=== PATIENT | male | born 1965 | race Caucasian/White ===

== ENCOUNTER 2018-01-06 11:49 | Inpatient (IN) ==
--- NOTE | 2018-01-05 21:56 | Discharge Summary ---
<NeymarRena E - Last Filed: 01/05/18 21:54> Date of Encounter: 01/05/18 - Discharge Diagnosis (1) Status post total replacement of left shoulder Priority: Primary Status: Acute (2) Arthritis of left shoulder region Priority: Primary Status: Chronic - Hospital Course Hospital course: Mr. Angel is a 52 year old male - Time Spent with Patient Total time spent providing and/or coordinating discharge services: - Discharge Medications Home Medications: OxyCODONE Immed Rel [Roxicodone 5 MG] 5 mg PO Q6HR PRN 7 Days #28 tablet [Rx] Allergies/Adverse Reactions: 3 Allergy/AdvReac Type Severity Reaction Status Date / Time No Known Allergies Allergy Verified 01/06/18 12:24 Primary care physician: Ralph Carlton MD - Patient Status Disposition: Home, Self-Care Condition: Good - Discharge Instructions Follow Up With: Gildardo Wang MD [Partnered Physician] - 02/05/18 4:45 pm Yenifer Medina PAC [Physician Print Producer] - 01/16/18 2:00 pm Additional Instructions: Discharge Instructions: Total Shoulder Please call [facility] ([phone]), your Primary Care Physician, or report to the Emergency Room if you have any of the following symptoms: Nausea, vomiting, fever greater that 101.5, swelling, chest pain, shortness of breath, increased pain/redness/drainage/odor for your incision site, numbness/ tingling, or any other concerning symptoms. ACTIVITY: Always keep your arm in the sling. Do not raise your arm away from your body. Do not use your arm to help with getting in or out of bed. No weight bearing permitted. Only perform those exercises given to you by your therapist. MEDICATIONS: Upon discharge resume your home medications. Take all the medications as prescribed. Take a stool softener if taking narcotic pain medications. Stool softeners are only effective if you drink enough fluids. Drink 6-8 glass of water or fluids a day, unless this is not allowed for another health problem. Despite using stool softeners, if you haven't had a bowel movement in 3 days, please switch to a gentle laxative. Gentle laxatives are sold over the counter. You should have a bowel movement within 24 hours, if not call the office. You will be discharged from the hospital with a prescription for pain medication. You are encouraged to decrease the use of narcotic pain medication as tolerated. Should you require a refill, please call the office. [facility] prescribes narcotic pain medication for only 4-6 weeks after surgery. If you require pain medication beyond this time period, you may be referred to your Primary Care Physician or to the Pain Clinic for further evaluation. Plan ahead for refills on pain medication as many narcotics either need to be picked up at the office or mailed. It is best to call 48-72 hours in advance of needing a prescription refill so you don't run out of medication. To help control the post-operative pain, you may take NSAIDs (Aleve,Advil, Motrin, Ibuprofen, Naprosyn) or Tylenol as prescribed on the bottle in addition to the pain medication. WOUND CARE: Leave the dressing on for 7-10 days. You may change the dressing if it becomes saturated greater than 50%. Do not get the dressing wet at anytime. Wash your hands with antibacterial soap, rinse and dry prior to any wound care. If you have pearl the visiting nurse or rehab facility can remove the stapes 10-14 days after surgery and place steri-strips across the wound. Leave the steri-strips in place until they fall off on their own. You may let water from the shower run on top of the steri-strips. If you do not have a visiting nurse or rehab facility, you will need to return to the office at 10-14 days for the pearl to be removed. If you have itching or redness around the dressing call the office. FOLLOW-UP: Please follow up with your surgeon in the orthopedic clinic, as scheduled <Gildardo Wang - Last Filed: 01/06/18 18:34> Orders not resulted at time of discharge: Pending orders 01/06/18 00:00 XR shoulder complete LT [XR] Routine 01/06/18 01:00 Hemoglobin and Hematocrit [HEME] Routine 01/06/18 13:00 US anesthesia pain block [US] Stat Date of Encounter: 01/06/18 Time of Encounter: 18:34 - Discharge Diagnosis (1) Obesity (BMI 30.0-34.9) Priority: Primary Status: Chronic (2) Status post total replacement of left shoulder Priority: Primary Status: Acute (3) Arthritis of left shoulder region Priority: Primary Status: Chronic (4) Tobacco use Priority: Secondary Status: Chronic - Hospital Course Hospital course: Mr. Angel is a 52 year old male Status post left total shoulder replacement discharged home same day - Time Spent with Patient Total time spent providing and/or coordinating discharge services: Primary care physician: Ralph Carlton MD - Patient Status Functional capacity at discharge: independent ambulation Overall status at discharge: patient is progressing back to baseline
[2018-01-06] MEDS ORDERED: CeFAZolin Syr 2,000MG/20 ML 2,000 MG/20 ML SYRINGE IVPB ONE (12:05)
[2018-01-06] MEDS ORDERED: Ringers Solution, Lactated 1,000 ML IVC SCH ×2 (12:15→17:16)
[2018-01-06] MEDS ORDERED: Acetaminophen IV 1,000 MG/100 ML INFUS..BTL IVPB ONE (12:34)
--- NOTE | 2018-01-06 12:37 | Anesthesia Evaluation PreOp ---
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: Denies Any Significant HX Other Medical History: Denies Any Significant HX Anesthesia History: Past Anesthesia (spinal fusion, cholecystectomy), Problems ( PONV) Alcohol Use: none Drug use: none Medications and Allergies OxyCODONE Immed Rel [Roxicodone 5 MG] 5 mg PO Q6HR PRN 7 Days #28 tablet [Rx] 3 Allergy/AdvReac Type Severity Reaction Status Date / Time No Known Allergies Allergy Verified 01/06/18 12:24 - Meds/Allergy Pre-op Review Medications Reviewed: Yes Allergies Reviewed: Yes Beta Blockers on Current Med List: No Anesthesia Results - Labs Laboratory Tests 12/30/17 12/30/17 12/30/17 08:50 08:50 08:50 WBC 9.5 Hgb 16.1 Hct 47.0 Plt Count 293 PT 12.0 INR 1.1 Sodium 136 Potassium 3.9 Chloride 105 Carbon Dioxide 25 BUN 18 Creatinine 1.00 Glucose 111 H Anesthesia Exam O2 Sat Height 1.88 m Height 1.88 m Height 1.88 m Weight 106.141 kg Weight 106.141 kg Weight 106.141 kg O2 Sat by Pulse Oximetry 96 Vital Signs Temp Pulse Resp BP Pulse Ox 97.8 F 77 18 126/84 96 01/06/18 12:14 01/06/18 12:14 01/06/18 12:14 01/06/18 12:14 01/06/18 12:14 NPO (# of Hours): >8 - HEENT Pupil (Motor): Pupils equal, EOMI Mallampati: II Teeth: Normal Oral Opening: Greater than 3 - CONTROL INTEGRATION ENGINEER LOC: Oriented CONTROL INTEGRATION ENGINEER Motor: Normal RUE, Normal LUE, Normal RLE, Normal LLE, Normal Face CONTROL INTEGRATION ENGINEER Sensory: Normal: RUE, LUE, RLE, LLE, Face - Cardiac Rhythm: Regular - Pulmonary Breath Sounds: bilateral Clear Respiratory Effort: Symmetrical Anesthesia Assess/Plan ASA Score: 2 Modified Frannie Scale for Level of Consciousness: Cooperative, oriented, and tranquil Anesthetic Plan: General, Regional (L brachial plexus) Monitoring Plan: Standard Monitors Recovery Plan: PACU
[2018-01-06] MEDS ORDERED: Scopolamine Patch 1.5 MG PATCH.TD72 TD ONE (12:56)
--- NOTE | 2018-01-06 13:13 | History & Physical Report ---
Date of Encounter: 01/06/18 Time of Encounter: 13:12 24 Hour HP Update - Instructions Instructions: If the History and Physical is less than 30 days old and was completed prior to A.M. admission and or procedure and has NOT been updated on calendar day of procedure please complete this update prior to performing procedure. - Update Patient reports changes in Medical Condition: No Changes in examination, assessment, or condition: No Changes in Medication: No Preop tests/diagnostics Reviewed: Yes Surgery Remains Indicated: Yes Consent for Planned Operative Procedure(s) Verified: Yes - Pre-Operative Checklist Preoperative Checklist Indicated: No Prophylactic Antibiotic Ordered: Yes Is VTE Prophylaxis Indicated?: Yes
[2018-01-06] MEDS ORDERED: ROPIVACAINE HCL/PF 0.5% 30 ML VIAL ONE (14:08)
[2018-01-06] MEDS ORDERED: Bupivacaine/Clonidine Syringe 1 EACH SYRINGE ONE (14:28)
--- NOTE | 2018-01-06 14:39 | Anesthesia Procedures ---
Date of Encounter: 01/06/18 Time of Encounter: 14:36 Procedures: Anesthesia - Nerve Block Procedure Date: 01/06/18 Time: 14:37 Allergies/Adv Reactions: NKDA Pre-op Diagnosis: left shoulder arthritis Surgical Procedure: left total shoulder Checklist: Correct Patient Identifier, Correct procedure, History checked Correct side: Left Blood Thinner: No Monitor Applied: BP, Pulse Oximetry Supplemental Oxygen via Nasal Cannula (L/min): 2 Sedation: Versed (mg): 2 Sedation: Fentanyl (mcg): 100 Indication: Post Op Analgesia (per dr. pires) Pre-op Neuro Deficits: No Block Type: Supraclavicular, Other (SCP) Catheter placed: No Sterile Technique: Yes Ultrasound used: Yes Anatomy identified: Yes Visual spread of Local: Yes Neuro Stimulation: No Blood on Needle Aspiration: No Smooth Injection of Local: Yes Pain with Injection of Local: No Prep: Chlorhexadine Needle: 22 x 50 mm Stimuplex Local: 0.25% Bupivicaine w/Clonidine 20 mcg/cc (7ml for SCP), Ropivacaine (0.5% 30ml with decadron 4mg for supraclav) Volume (cc): ropivacaine 30ml, bupiv 7 Number of Attempts: 1 Complications: None/effective block Vitals: Vital Signs/O2 Sat, Most Current Temp Pulse Resp BP Pulse Ox 97.8 F 77 18 126/84 96 01/06/18 12:14 01/06/18 12:14 01/06/18 12:14 01/06/18 12:14 01/06/18 12:14
[2018-01-06] MEDS ORDERED: Ondansetron 4 MG/2 ML VIAL IVP PRN ×2 (15:34→17:16)
[2018-01-06] MEDS ORDERED: Lidocaine -MPF 2% 2 ML VIAL ONE (15:36)
[2018-01-06] MEDS ORDERED: *HR* PHENYLEPHRINE 1,000 MCG/10 ML SYRINGE IVP ONE (15:36)
[2018-01-06] MEDS ORDERED: Dexamethasone 4 MG/ML VIAL ONE ×2 (15:36→15:37)
[2018-01-06] MEDS ORDERED: *HR* FentaNYL (PF) 100 MCG/2 ML VIAL ONE (15:36)
[2018-01-06] MEDS ORDERED: *HR* Midazolam HCl 2 MG/2 ML VIAL ONE (15:36)
[2018-01-06] MEDS ORDERED: *HR* Propofol 200 MG/20 ML VIAL IVP ONE (15:36)
[2018-01-06] MEDS ORDERED: Ketorolac 30 MG/ML VIAL ONE (16:10)
--- NOTE | 2018-01-06 16:13 | Orthopedic Operative Note ---
Date of procedure: 01/06/18 Pre-op diagnosis: Left shoulder arthritis Post-op diagnosis: same Procedure: Procedure: Total Shoulder Replacement left Estimated blood loss: 100 cc Hardware:Arthrex eclipse glenoid: Extra large keel eclipse humeral head 53 x 22 45 hollow screw 53 trunnion, 4, 4.75 swivel lock suture anchors. Exam Under anesthesia: Restricted motion all planes Procedural Notes: Grade 4 arthritic changes humeral head glenoid socket, significant osteophyte formation humeral neck, no complications occurred Operative procedure: The patient was brought to the operating room and placed on the operating room table. After general anesthesia was administered the operative shoulder was examined. Findings were noted. The patient was placed in the modified beachchair position. All pressure points were padded appropriately. And the head was stabilized in the neutral position. The operative extremity was prepped and draped in the sterile surgical fashion. The patient received IV antibiotics prior to skin incision. A standard deltopectoral approach was made to the operative shoulder. Incision was made to the skin and subcutaneous tissue,hemo stasis was obtained with Bovie cautery. Using careful blunt dissection the cephalic vein was identified and mobilized medially. The deltopectoral interval was developed and the clavipectoral fascia was incised. The subscap was released off the lesser tuberosity and tagged with #2 FiberWire suture. The humerus was dislocated osteophytes were present were removed and the humeral cut was made along the anatomic neck. Patient noted to have grade 4 arthritic changes humeral head. Anterior and posterior Bankart retractors were placed to expose the glenoid. Glenoid was noted to have grade 4 arthritic changes. The glenoid guide was seated and the centering hole was made. It was reamed with the appropriate reamer. The finishing guide was seated superior and inferior drill holes were placed. Patient punch was seated trial was seated had good fit and fixation. The extra large glenoid component was cemented in place held with digital pressure until cemented hardened. Good fit and fixation. The humerus was redislocated and prepared the humerus was sized to a 53, the guide was seated centering pin was placed measured at 45. Trial trunnion was seated 53 x 22 trial was seated humerus was reduced patient good motion and stability. Humerus was redislocated real 53 trunnion was seated and the center of the cut. It was fixed with the 45 Hollow screw, 53 x 20 head was impacted in place had good fit and fixation. Shoulders reduced had good stability. Subscap was repaired with 4 #2 fiber tapes in a Dmitriy-Stevo fashion and secured to the lesser tuberosity with 4, 4.75 swivel lock suture anchors. The deep tissue was irrigated with pulse irrigation, the PA close the shoulder. Prior to this the rotator interval was closed with 1 [id number] Vicryl suture. The deltopectoral interval was closed with a running #1 PDS suture, subcutaneous tissue was irrigated and closed with 0 PDS suture, the skin was closed with Dermabond. Complications: none Anesthesia: GETA Surgeon: Gildardo Wang Was there an geological survey field assistant present: No Estimated blood loss (cc): 100 Condition: stable Disposition: PACU
[2018-01-06] MEDS ORDERED: *HR* OxyCODONE/APAP 5/325 TABLET PO ONE (16:29)
[2018-01-06 16:55] LABS: Hematocrit 42.1 % (37.5-50.1); Hemoglobin 14.8 g/dL (12.9-16.9)
--- NOTE | 2018-01-06 17:01 | Anesthesia Evaluation Post Op ---
Date of Encounter: 01/06/18 Time of Encounter: 17:01 - Vital Signs Vital Signs: Selected Entries 01/06/18 16:51 Temperature 98.2 F Pulse Rate 76 Respiratory Rate 19 Blood Pressure 121/73 O2 Sat by Pulse Oximetry 94 - Lungs Lungs: Clear Ascult./Percussion - Airway Airway: Non-obstructed - Cardiovascular Regular Rate - Mental Status Mental Status: Alert & Oriented, Answers Appropriately - Pain Pain Scale: 4 Pain Scale used: Numeric (1 - 10) - Nausea Vomiting Nausea Vomiting: Not Present - Hydration Hydration: Ice chips, Has not voided - Discharge PostOp Status: Transfer Patient to floor
[2018-01-06] MEDS ORDERED: *HR* OxyCODONE Immed Rel 5 MG TABLET PO PRN (17:16)
[2018-01-06] MEDS ORDERED: Sennosides 8.6 MG TABLET PO PRN (17:16)
[2018-01-06] MEDS ORDERED: Naloxone 0.4 MG/ML INJ IVP PRN (17:16)
[2018-01-06] MEDS ORDERED: Temazepam 15 MG CAPSULE PO PRN (17:16)
[2018-01-06] MEDS ORDERED: MOM Conc 10 ML UD.LIQ PO PRN (17:16)
[2018-01-06] MEDS ORDERED: traMADol 50 MG TABLET PO PRN (17:16)
[2018-01-06] MEDS ORDERED: *HR* OxyCODONE/APAP 5/325 TABLET PO PRN (17:16)
[2018-01-06] MEDS ORDERED: *HR* Enoxaparin 30 MG/0.3 ML SYRINGE SQ SCH ×2 (18:00)
[2018-01-06] MEDS ORDERED: ceFAZolin 2,000 MG in D5% in Water 100 ML IVPB ONE (18:41)
[2018-01-06 19:35] VITALS: BP 126/79
[2018-01-06] MEDS ORDERED: ceFAZolin 2,000 MG in D5% in Water 100 ML IVPB SCH (22:00)
== END 2018-01-06 20:42 | disposition home or self-care (01) | DRG 483 ==
LOC: SAMDAY 11:49 → 3NENU 17:01
PROVIDERS: ADMIT Orthopaedic Surgery; ATTEND Orthopaedic Surgery